=== PATIENT | male | born 1985 | race Caucasian/White ===

== ENCOUNTER → 2023-11-01 17:25 | Outpatient (REF) | payer OTHER, SELFPAY | LOC: MRI 3T 17:25 | PROVIDERS: ATTENDING PHYSICIAN Physician Assistant | DX: R90.89 Other abnormal findings on diagnostic imaging of central nervous system (principal) | CPT/HCPCS: 70553; A9575 ==

== ENCOUNTER → 2023-11-29 17:15 | Outpatient (REF) | payer OTHER, SELFPAY | LOC: MRI 3T 17:15 | PROVIDERS: ATTENDING PHYSICIAN Neurological Surgery; FAMILY PHYSICIAN Physician Assistant | DX: Q28.3 Other malformations of cerebral vessels (principal) | CPT/HCPCS: 70546; A9585 ==

== ENCOUNTER → 2024-07-14 08:00 | Outpatient (REF) | payer OTHER, SELFPAY | LOC: MRI 3T 08:00 | PROVIDERS: ATTENDING PHYSICIAN Physician Assistant; FAMILY PHYSICIAN Physician Assistant; REFERRING PHYSICIAN Neurological Surgery | DX: R42 Dizziness and giddiness (principal); R51.9 Headache, unspecified | CPT/HCPCS: 70553; A9575 ==

== ENCOUNTER → 2024-07-17 16:20 | Outpatient (REF) | payer OTHER, SELFPAY | LOC: RAD 16:20 | PROVIDERS: ATTENDING PHYSICIAN Physician Assistant | DX: M54.41 Lumbago with sciatica, right side (principal); G89.29 Other chronic pain | CPT/HCPCS: 72110 ==

== ENCOUNTER → 2024-09-23 07:17 | Outpatient (REF) | payer OTHER, SELFPAY | LOC: RCS 07:17 | PROVIDERS: ATTENDING PHYSICIAN Physician Assistant | DX: R42 Dizziness and giddiness (principal); R07.89 Other chest pain | CPT/HCPCS: 93306 ==

== ENCOUNTER 2024-09-28 17:12 | Outpatient (RCR) | payer OTHER, SELFPAY | END 2024-09-28 23:59 | disposition home or self-care (01) | LOC: RPT 17:12 | PROVIDERS: ATTENDING PHYSICIAN Physician Assistant | DX: M51.360 Other intervertebral disc degeneration, lumbar region with discogenic back pain only (principal); Z73.6 Limitation of activities due to disability | CPT/HCPCS: 97010; 97110; 97112; 97162 ==

== ENCOUNTER 2024-10-16 17:10 | Outpatient (RCR) | payer OTHER, SELFPAY | END 2024-10-16 23:59 | disposition home or self-care (01) | LOC: RPT 17:10 | PROVIDERS: ATTENDING PHYSICIAN Physician Assistant | DX: M51.360 Other intervertebral disc degeneration, lumbar region with discogenic back pain only (principal); Z73.6 Limitation of activities due to disability | CPT/HCPCS: 97110; 97140 ==

== ENCOUNTER 2025-07-22 12:47 | Emergency (ER) | payer OTHER, SELFPAY ==
[2025-07-22 12:53] VITALS: BP 137/91
[2025-07-22 13:00] VITALS: BP 141/99
[2025-07-22 13:25] LABS: Hematocrit 43.3 % (39.0-52.0); Hemoglobin 15.8 g/dL (13.0-18.0); Mean Corp Hgb Conc. 36.5 g/dL (33.0-37.0); Mean Corpuscular Volume 89.1 fL (80.0-94.0); Nucleated Red Blood Cells % 0 % (-); Platelet Count 231 10^3/uL (130-400); Red Cell Dist. Width 11.1 % (11.5-14.5)
[2025-07-22 13:36] LABS: ALT (SGPT) 26 U/L (0-50); AST (SGOT) 21 U/L (17-59); Albumin 4.9 g/dl (3.5-5.0); Alkaline Phosphatase 39 U/L (38-126); Blood Urea Nitrogen 18 mg/dl (9-20); Calcium 9.4 mg/dl (8.4-10.2); Carbon Dioxide 26 mmol/L (22-30); Chloride 103 mmol/L (98-107); Glucose 99 mg/dl (70-99); Potassium 4.0 mmol/L (3.5-5.1); Sodium 137 mmol/L (135-145); Total Protein 7.7 g/dl (6.3-8.2); eGFR > 60.00
[2025-07-22 13:38] VITALS: BMI 17.5
[2025-07-22 13:47] LABS: Troponin I 0.017 ng/ml
[2025-07-22 14:00] VITALS: BP 114/86
--- NOTE | 2025-07-22 14:20 | ED.GENMED ---
History of Present Illness
General
Chief Complaint: Chest Pain
Source: patient
Exam Limitations: none
Time Seen by Provider: 07/22/25 14:08
Nursing documentation reviewed up to this point in time: agreed with
History of Present Illness
History of Present Illness:
Patient to the emergency department for evaluation of rapid heart rate chest tightness and a pinching sensation in the right side of his chest. The rapid heart rate started yesterday. He reports feeling a pounding in his chest. Since then he
feels he is becoming more short of breath with activity. Occasionally he feels some right sided chest tightness and intermittent pinching in the right side of his chest. He reports he has had the symptoms in the past he was evaluated with a Holter
monitor in 2022 for similar symptoms. report reveals sinus rhythm with rare PACs and PVCs. The symptoms he was reporting at that time were associated with sinus rhythm. He states he has an echo scheduled but not until September. He reports 2 cups
of caffeinated coffee daily however yesterday he had a third cup and this is when his symptoms started. He has not experienced a rapid heart rate or pounding in his chest today. Today he reports intermittent right-sided chest pressure and pinching
sensation in his chest. Brought to the emergency department by spouse for evaluation
Past History
Past History
ED Past Medical History: None
Review of Systems
Review of Systems
Allergies reviewed?: Yes
All Other Systems: ROS reviewed and negative except as documented in HPI and ROS
Constitutional: Reports no symptoms
EENT: Reports no symptoms
Respiratory: Reports trouble breathing (VUONG)
Cardiac: Reports chest pain (Right sided chest pressure, pinching sensation right sided chest.) and palpitations
ABD/GI: Reports no symptoms
: Reports no symptoms
Musculoskeletal: Reports no symptoms
Skin: Reports no symptoms
Neurological: Reports no symptoms
Psychiatric: Reports no symptoms
Phy Exam
General Physical Exam
General Presentation: well appearing and no apparent distress
General age: appears stated age
General Skin: warm and dry
General Habitus: normal
Cardiovascular Exam
Cardiovascular Exam: regular rate/rhythm and no edema
Pulmonary Exam
Pulmonary Exam: lungs clear and no respiratory distress
Musculoskeletal Exam
Musculoskeletal Exam: full ROM
Skin Exam
Skin Exam: normal color, warm/dry and no rash
Psychiatric Exam
Psychiatric Exam: normal mood/affect
Scores
Heart Score for Chest Pain Patients
STEMI patient?: No
History: Slightly or Non-Suspicious
ECG: Normal
Age: </= 45 years
Risk Factors: No Risk Factors
Troponin: </= Normal Limit
Heart Score for Chest Pain Patients: 0
Heart Score Risk: 2.5% MACE over next 6 weeks
Course
Orders/Labs/Results
Orders:
Orders
07/22/25 12:48
Electrocardiogram (*1) Urgent
Reason for Study: Chest Pain
EKG- Treatment ONCE
07/22/25 12:58
IV Insert/Care/Rem.- Treatment PRN
07/22/25 13:06
Complete Blood Count/With Diff Urgent
07/22/25 13:07
Comprehensive Metabolic Panel Urgent
Troponin I Urgent
07/22/25 14:19
Add On- LAB Urgent
Tests Added?: TSH reflex free T4
07/22/25 14:21
D-Dimer Urgent
Troponin I Urgent
Abnormal Lab Results
07/22/25
13:06
MCH 32.5 H pg
(27.0-31.0)
RDW 11.1 L %
(11.5-14.5)
07/22/25 13:06
07/22/25 13:07
Vital Signs
Initial and Last Documented VS:
Initial Vital Signs
Temp Pulse Resp BP Pulse Ox
98.3 F 92 17 137/91 99
07/22/25 12:53 07/22/25 12:53 07/22/25 12:53 07/22/25 12:53 07/22/25 12:53
Last Documented Vital Signs
Temp Pulse Resp BP Pulse Ox
98.3 F 79 12 111/83 97
07/22/25 12:53 07/22/25 15:15 07/22/25 15:15 07/22/25 15:00 07/22/25 15:15
*Radiology
Radiology exam reviewed: radiology read reviewed
*Pulse Oximetry
SaO2: 96
Oxygen Mode of Delivery: Room air
Patient hypoxic: no
*EKG
Interpretation: normal
Rate: normal
Rhythm: sinus
*Critical Care Note
Total Time (30-74mins, 75-104mins- exclusive of procedures): Not Applicable
Update Note
Update Note:
Patient to the emergency department with complaint of palpitations, heart pounding in his chest, right sided chest pressure, pinching sensation on the right side of his chest. Symptoms started yesterday. He states that the palpitations stopped
overnight but the rest of his symptoms continued through today. Vital signs stable he remains afebrile. Labs reviewed, CBC and CMP without concerning findings. Troponin negative x 2. Symptoms started yesterday and would expect to see an
elevation in the troponin at this point. EKG NSR. D-dimer negative. Discussed findings with patient. He has had the symptoms in the past, has been evaluated by his primary care provider. Will request that he follow-up with cardiology for these
ongoing symptoms. Recommend that he limit his caffeine intake. He is agreeable to this. He will be discharged home today. He was given instructions on signs and symptoms to return to the emergency department and he is agreeable to this plan.
ED Attending Note
-
Portions of this chart may have been created with voice recognition software.� Occasional wrong word or��sound alike� substitutions may have occurred due to the inherent limitations of voice recognition software.
Discharge Plan
Departure
Patient Disposition: Home (Routine Discharge)
Date of Disposition: 07/22/25
Time of Disposition: 15:25
Patient with high blood pressure during this ER visit?: No
Condition: Good
Covid-19: Not Applicable
Discharge Problem:
Chest pain, Heart palpitations
Instructions: Chest Pain DCA Follow Up
Referrals:
Fernanda Silverman PA-C [Family Provider, Family Practice] - Follow up in 2-3 days
Activity Restrictions/Additional Instructions:
Return to the emergency department for any changes in/worsening of your symptoms.
Interventions
Interventions:
*Risk Screen - Suicide Last Done: 07/22/25 12:55
*General Assessment Last Done: 07/22/25 12:55
*Neglect/Abuse Screening Last Done: 07/22/25 12:55
*ED COVID-19 Vaccine History Last Done: 07/22/25 12:55
*ED Influenza Vaccine History Last Done: 07/22/25 12:55
[facility] Risk Assessment Tool Last Done: 07/22/25 13:41
ED- Cardiac Assessment Last Done: 07/22/25 13:38
Discharge Date and Time
Print Language: ROMANIAN
[2025-07-22 14:46] LABS: D-Dimer < 0.27 ug/mlFEU (0.00-0.50)
[2025-07-22 15:00] VITALS: BP 111/83
[2025-07-22 15:04] LABS: Troponin I 0.015 ng/ml
== END 2025-07-22 15:44 | disposition home or self-care (01) ==
LOC: EMR 12:47
PROVIDERS: Emergency Medicine; Nurse Practitioner; EMERGENCY PHYSICIAN Emergency Medicine; FAMILY PHYSICIAN Physician Assistant
DX: R07.89 Other chest pain (principal); R00.0 Tachycardia, unspecified; I49.3 Ventricular premature depolarization
CPT/HCPCS: 99283; 80053; 84443; 84484; 85025; 85379; 93005

== ENCOUNTER → 2025-08-10 08:04 | Outpatient (REF) | payer OTHER, SELFPAY | LOC: RCS 08:04 | PROVIDERS: ATTENDING PHYSICIAN Internal Medicine Cardiovascular Disease; FAMILY PHYSICIAN Physician Assistant | DX: R07.89 Other chest pain (principal); R00.2 Palpitations | CPT/HCPCS: 93306 ==

== ENCOUNTER → 2025-08-10 17:21 | Outpatient (REF) | payer OTHER, SELFPAY | LOC: MRI 17:21 | PROVIDERS: ATTENDING PHYSICIAN Nurse Practitioner; FAMILY PHYSICIAN Family Medicine | DX: M89.9 Disorder of bone, unspecified (principal) | CPT/HCPCS: 70553; A9575 ==

== ENCOUNTER → 2025-08-13 09:36 | Outpatient (REF) | payer OTHER, SELFPAY | LOC: RCS 09:36 | PROVIDERS: ATTENDING PHYSICIAN Internal Medicine Cardiovascular Disease; FAMILY PHYSICIAN Physician Assistant | DX: R07.89 Other chest pain (principal); R00.2 Palpitations | CPT/HCPCS: 93017 ==